=== PATIENT | female | born 1965 | race Caucasian/White ===

== ENCOUNTER 2016-11-19 07:00 | Day surgery (SDC) | payer MEDICAID ==
[2016-11-18 10:27] VITALS: BMI 28.6
[2016-11-19] VITALS (12 sets, daily range): BP systolic 121–137; BP diastolic 60–83; PULSE 68–82; RESP 13–28; Ht 162.6 cm; Wt 75.0 kg
[~2016-11-19] VITALS: Ht 162.6 cm; Wt 75.0 kg
[~2016-11-19 07:00] MED LIST: CAPT25TA71 PO; CEFAZOLIN 2 GM/50 ML (PMX) 50 ML IVPB SCH; GLIM4TAB PO; NOL20 PO; SITA1TBM4 PO; SOD CHLORIDE 0.9% 1,000 ML IV SCH
[2016-11-19] MEDS ORDERED: SITA1TAB5 PO (07:45)
[2016-11-19] MEDS ORDERED: EMPA25TA PO (07:46)
[2016-11-19 08:50] LABS: BASOPHILS % 0.5 % (0.0-2.0); EOSINOPHILS # 0.1 10^3/ul (0.0-0.5); EOSINOPHILS % 1.7 % (0.0-7.0); HEMOGLOBIN 13.3 g/dl (12.0-16.0); LYMPHOCYTES # 1.6 10^3/ul (0.8-2.9); LYMPHOCYTES % 28.7 % (15.0-51.0); MEAN CORPUSCULAR HEMOGLOBIN 30.2 pg (29.0-33.0); MEAN CORPUSCULAR HGB CONC 33.3 g/dl (32.0-37.0); MEAN CORPUSCULAR VOLUME 90.7 fl (82.0-101.0); MEAN PLATELET VOLUME 10.8 fl (7.4-10.4); MONOCYTE # 0.4 10^3/ul (0.3-0.9); MONOCYTES % 6.1 % (0.0-11.0); NEUTROPHIL # 3.6 10^3/ul (1.6-7.5); NEUTROPHILS % 62.7 % (39.0-77.0); PLATELET COUNT 181 10^3/UL (140-415); RED BLOOD COUNT 4.41 10^6/ul (4.20-5.40); RED CELL DISTRIBUTION WIDTH 13.2 % (11.5-14.5); WHITE BLOOD COUNT 5.7 10^3/ul (4.8-10.8)
[2016-11-19 08:52] LABS: ADD SCAN DIFF NO
--- NOTE | 2016-11-19 09:04 | RADRPT ---
PROCEDURE: XR Chest. CLINICAL INDICATION: Preop TECHNIQUE: An AP view of the chest was obtained. COMPARISON: No prior exam is available for comparison. FINDINGS: There is a right chest Port-A-Cath with tip near the cavoatrial junction. There is prominence of the interstitial markings. No pleural effusion or pneumothorax is seen. Th e cardiomediastinal silhouette is mildly enlarged . Calcifications are seen within the aortic arch. The osseous structures demonstrate senescent changes. IMPRESSION: 1. Mild prominence of the interstitial markings, may reflect mild underlying interstitial edema or chronic lung changes. 2. Mild cardiomegaly and aortic atherosclerosis. 3. Right chest Port-A-Cath. RPTAT: HH .Rashida Fortune MD, MD Date Time Electronically viewed and signed by .Rashida Fortune MD, on 11/19/2016 09:04 .G/
[2016-11-19 09:05] LABS: INR 0.96; PARTIAL THROMBOPLASTIN TIME 28.7 Sec (25.0-35.0); PROTIME 12.8 Sec (12.2-14.2)
[2016-11-19 09:07] LABS: ALBUMIN 4.5 g/dl (3.3-4.9); ALBUMIN/GLOBULIN RATIO 1.32; BILIRUBIN,INDIRECT 0.4 mg/dl (0-1.1); BILIRUBIN,TOTAL 0.4 mg/dl (0.2-1.3); TOTAL PROTEIN 7.9 g/dl (6.1-8.1)
[2016-11-19 09:11] LABS: CALCIUM 9.3 mg/dl (8.4-10.2); CREATININE 0.74 mg/dl (0.44-1.00); POTASSIUM 4.2 mmol/L (3.5-5.1)
[2016-11-19] MEDS ORDERED: METOCLOPRAMIDE 10 MG INJ IV PRN (10:00)
[2016-11-19] MEDS ORDERED: DIPHENHYDRAMINE 50 MG INJ IV PRN (10:00)
[2016-11-19] MEDS ORDERED: OXYCODONE/ACETAMINOPHEN (5/325) TAB PO PRN ×2 (10:00)
[2016-11-19] MEDS ORDERED: MIDAZOLAM 1 MG/ML 2 ML INJ IV PRN (10:00)
[2016-11-19] MEDS ORDERED: MEPERIDINE 25 MG INJ IV PRN (10:00)
[2016-11-19] MEDS ORDERED: FENTAnyl 50 MCG/ML VIAL IV PRN ×2 (10:00)
[2016-11-19] MEDS ORDERED: ONDANSETRON 4 MG INJ IV PRN (10:00)
[2016-11-19] MEDS ORDERED: morphine (1 MG/ML) 10ML SYRINGE IV PRN ×2 (10:00)
[2016-11-19] MEDS ORDERED: PROPOFOL 20 ML ONE (10:07)
[2016-11-19] MEDS ORDERED: LIDOCAINE 2% (SDV) 5 ML INJ ONE (10:07)
[2016-11-19] MEDS ORDERED: MEPERIDINE 100 MG INJ ONE ×2 (10:24→11:50)
[2016-11-19] MEDS ORDERED: METOCLOPRAMIDE 10 MG INJ ONE ×2 (10:25→11:49)
[2016-11-19] MEDS ORDERED: ONDANSETRON 4 MG INJ ONE ×2 (10:25→11:46)
--- NOTE | 2016-11-22 20:56 | RADRPT ---
Vent Rate: 75 bpm RR Interval: 0 msec NC Interval: 154 msec QRS Duration: 86 msec QT Interval: 394 msec QTC Interval: 439 msec P-R-T Morris: 39 - 13 - 54 degrees Normal sinus rhythm Normal ECG Electronically Signed By: Alan Soni [id number]
== END 2016-11-19 13:05 | disposition home or self-care (01) ==
LOC: SDS 07:00
PROVIDERS: ATTEND Surgery Surgical Oncology
DX: Z45.2 Encounter for adjustment and management of vascular access device (principal); E11.9 Type 2 diabetes mellitus without complications; I10 Essential (primary) hypertension; E78.5 Hyperlipidemia, unspecified; Z85.3 Personal history of malignant neoplasm of breast
CPT/HCPCS: 36590; 71010; 80053; 82962; 85025; 85610; 85730; 88300; 93005; J2175; Z7512; Z7610; J2405; J2765